=== PATIENT | female | born 1975 | race African-American/Black ===

== ENCOUNTER 2017-03-09 06:59 | Day surgery (SDC) | payer OTHER ==
[~2017-03-09] VITALS: Ht 170.2 cm; Wt 104.3 kg
[2017-03-09 07:43] VITALS: BP 125/82
[2017-03-09] MEDS ORDERED: ENDOCET 5-3251 EACH PO (10:11)
[2017-03-09] MEDS ORDERED: IBUPROFEN800 MG PO (10:11)
[2017-03-09 11:50] VITALS: BP 109/55
[2017-03-09 13:05] VITALS: BP 133/66
[2017-03-09 13:55] VITALS: BP 123/64
== END 2017-03-09 13:55 | disposition home or self-care (01) ==
LOC: SDC
DX: D25.9 Leiomyoma of uterus, unspecified (principal); N83.8 Other noninflammatory disorders of ovary, fallopian tube and broad ligament; N80.0 Endometriosis of uterus; N94.6 Dysmenorrhea, unspecified; N92.0 Excessive and frequent menstruation with regular cycle; Z83.3 Family history of diabetes mellitus; Z80.3 Family history of malignant neoplasm of breast; Z82.49 Family history of ischemic heart disease and other diseases of the circulatory system; Z87.891 Personal history of nicotine dependence
CPT/HCPCS: 88307; J0131; J0330; J0690; J1100; J1170; J1885; J2250; J2405; J2710; J3010